=== PATIENT | male | born 1965 | race Caucasian/White ===

== ENCOUNTER → 2024-08-24 10:03 | Outpatient (REF) | payer OTHER, SELFPAY | LOC: HWRAD 10:03 | PROVIDERS: ATTENDING PHYSICIAN Student in an Organized Health Care Education/Training Program; FAMILY PHYSICIAN Family Medicine | DX: Z91.89 Other specified personal risk factors, not elsewhere classified (principal); M05.741 Rheumatoid arthritis with rheumatoid factor of right hand without organ or systems involvement; M05.742 Rheumatoid arthritis with rheumatoid factor of left hand without organ or systems involvement | CPT/HCPCS: 73120; 77080 ==

== ENCOUNTER 2024-11-17 06:34 | Day surgery (SDC) | payer OTHER, SELFPAY | END 2024-11-17 12:51 | disposition home or self-care (01) | LOC: GI 06:34 | PROVIDERS: ATTENDING PHYSICIAN Internal Medicine | DX: Z12.11 Encounter for screening for malignant neoplasm of colon (principal); K64.8 Other hemorrhoids; D12.5 Benign neoplasm of sigmoid colon; K64.4 Residual hemorrhoidal skin tags; Z86.0101 Personal history of adenomatous and serrated colon polyps | CPT/HCPCS: 45380; 88305 ==